=== PATIENT | female | born 1960 | race Caucasian/White ===

== ENCOUNTER → 2016-04-29 | Outpatient (CLI) | payer MEDICARE, BC ==
[2016-04-29 10:44] LABS: Basophils % (A) 1 %; CH 31.5; CHCM 34.9; Eosinophils # (A) 0.2 k/uL (0-0.7); Eosinophils % (A) 3 %; HCT 40.6 % (34.0-46.0); HDW 2.83; HGB 13.7 gm/dL (11.4-16.0); Luc # (Auto) 0.11; Luc % (Auto) 2; Lymphocytes % (A) 32 %; MCH 30.6 pg (25.0-35.0); MCHC 33.8 g/dL (31.0-37.0); MCV 90.6 fL (80.0-100.0); Mean Platelet Volume 6.5; Monocytes # (A) 0.3 k/uL (0-1.0); Monocytes % (A) 5 %; Neutrophils # (A) 3.5 k/uL (1.3-7.7); Neutrophils % (A) 58 %; RBC 4.48 m/uL (3.80-5.40); RDW 12.7 % (11.5-15.5); WBC 6.1 k/uL (3.8-10.6); WBC (Perox) 6.43
[2016-04-29 10:45] LABS: Appearance,Urine Clear (Clear); Bilirubin,Urine Negative (Negative); Glucose,Urine (UA) 4+ (Negative); Ketones,Urine Negative (Negative); Leukocyte Esterase,Urine Negative (Negative); Nitrite,Urine Negative (Negative); PH, Urine 5.5 (5.0-8.0); Protein,Urine Negative (Negative); Specific Gravity,Urine 1.024 (1.001-1.035); UA Billing (MACRO vs. MICRO) CHEM; Urobilinogen,Urine <2.0 mg/dL (<2.0)
[2016-04-29 11:27] LABS: ALT 25 U/L (9-52); AST 19 U/L (14-36); Alkaline Phosphatase 75 U/L (38-126); Anion Gap 12 mmol/L; Blood Urea Nitrogen 9 mg/dL (7-17); Calcium 9.6 mg/dL (8.4-10.2); Carbon Dioxide 27 mmol/L (22-30); Chloride 104 mmol/L (98-107); Cholesterol 157 mg/dL (<200); Creatine Kinase 54 U/L (30-135); Glucose 114 mg/dL (74-99); HDL Cholesterol 65 mg/dL (40-60); Non-African American GFR(MDRD) >60 (>60 ml/min/1.73 sqM); Potassium 4.4 mmol/L (3.5-5.1); Sodium 143 mmol/L (137-145); Total Bilirubin 0.7 mg/dL (0.2-1.3); Total Protein 6.7 g/dL (6.3-8.2); Triglycerides 159 mg/dL (<150)
[2016-04-29 12:07] LABS: Vitamin B12 673 pg/mL (239-931)
[2016-04-29 12:22] LABS: Erythrocyte Sedimentation Rate 7 mm/hr (0-20)
== END | disposition home or self-care (01) ==
LOC: LABWHC1 09:59
PROVIDERS: ATTEND Family Medicine
DX: Z00.00 Encounter for general adult medical examination without abnormal findings (principal); A08.4 Viral intestinal infection, unspecified; E78.00 Pure hypercholesterolemia, unspecified; E11.9 Type 2 diabetes mellitus without complications
CPT/HCPCS: 36415; 80053; 80061; 81003; 82043; 82306; 82550; 82607; 84443; 85025; 85652; 87086

== ENCOUNTER → 2016-12-23 | Outpatient (CLI) | payer MEDICARE, BC ==
--- NOTE | 2016-12-24 08:58 | MM ---
Reason for exam: screening (asymptomatic). Last mammogram was performed 4 years and 8 months ago. History: Patient is postmenopausal and is nulliparous. Physical Findings: A clinical breast exam by your physician is recommended on an annual basis and results should be correlated with mammographic findings. MG 3D Screening Mammo W/Cad Bilateral CC and MLO view(s) were taken. Prior study comparison: May 01, 2012, mammogram, performed at [facility]. February 04, 2011, mammogram, performed at [facility]. Finding #1: There is a 4 mm equal density (isodense) mass in the far lateral left breast. Finding #2: There are typically benign calcifications in both breasts. ASSESSMENT: Incomplete: need additional imaging evaluation, BI-RAD 0 RECOMMENDATION: Special view mammogram of the left breast. If lesion persists on supplemental views, image directed ultrasound is recommended. [facility] will attempt to contact patient to return for supplemental views and ultrasound if indicated.
== END | disposition home or self-care (01) ==
LOC: RADMAMWWP 13:17
PROVIDERS: ATTEND Family Medicine
DX: Z12.31 Encounter for screening mammogram for malignant neoplasm of breast (principal)
CPT/HCPCS: 77063; G0202

== ENCOUNTER → 2016-12-27 | Outpatient (CLI) | payer MEDICARE, BC ==
--- NOTE | 2016-12-30 07:25 | MM ---
Reason for exam: additional evaluation requested from abnormal screening. Last mammogram was performed less than 1 month ago. History: Patient is postmenopausal and is nulliparous. Excisional biopsy of the left breast, 2013. Took hormonal contraceptives for 11 years beginning at age 20. Physical Findings: Nurse did not find any significant physical abnormalities on exam. MG 3D Work Up W/Cad LT CC, MLO, XCCL, and spot compression CC view(s) were taken of the left breast. Prior study comparison: December 23, 2016, bilateral MG 3d screening mammo w/cad. May 01, 2012, mammogram, performed at [facility]. No persistent nodule. Tortuous vessels noted. These results were verbally communicated with the patient and result sheet given to the patient on 12/27/16. ASSESSMENT: Benign, BI-RAD 2 RECOMMENDATION: Return to routine screening mammogram schedule for both breasts.
== END | disposition home or self-care (01) ==
LOC: RADMAMWWP 15:01
PROVIDERS: ATTEND Family Medicine
DX: R92.8 Other abnormal and inconclusive findings on diagnostic imaging of breast (principal)
CPT/HCPCS: G0206; G0279

== ENCOUNTER → 2017-08-01 | Outpatient (CLI) | payer MEDICARE, BC ==
--- NOTE | 2017-08-01 13:40 | US ---
EXAMINATION TYPE: US abdomen complete DATE OF EXAM: 08/01/2017 COMPARISON: NONE CLINICAL HISTORY: R19.7 Diarrhea unspecified. N/V/D, and back pain for a few days, cholecystectomy EXAM MEASUREMENTS: Liver Length: 15.6 cm Gallbladder Wall: Surgically absent CBD: 0.7 cm Spleen: 13.5 cm Right Kidney: 12.4 x 5.9 x 5.5 cm Left Kidney: 11.1 x 5.6 x 5.4 cm *bowel gas and habitus limits exam Pancreas: limited views, wnl Liver: wnl Gallbladder: Surgically absent Evidence for sonographic Kitchen's sign: no CBD: wnl Spleen: wnl Right Kidney: wnl Left Kidney: wnl Upper IVC: wnl Abd Aorta: wnl The liver is homogenous. The intrahepatic portion of the IVC and proximal abdominal aorta are within normal limits.Common bile duct is unremarkable. The visualized portions of the pancreas are homogen ous. The spleen is unremarkable. Kidneys are symmetric and free of hydronephrosis. No renal lesion s are seen. IMPRESSION: 1. No significant abnormality appreciated.
--- NOTE | 2017-08-01 15:43 | US ---
EXAMINATION TYPE: US pelvic complete DATE OF EXAM: 08/01/2017 COMPARISON: NONE CLINICAL HISTORY: R19.7 Diarrhea unspecified. back pain, n/v/d, G0 TECHNIQUE: TA. Transabdominal sonographic images of the pelvis were acquired. Date of LMP: 5 years ago EXAM MEASUREMENTS: Uterus: 5.0 x 4.1 x 2.2 cm Endometrial Stripe: 0.3 cm Right Ovary: not seen Left Ovary: not seen *patient waited additional 20 mins to fill, but limitations due to patients active peristalsing bowel , gas and h/o diarrhea today 1. Uterus: Anteverted wnl 2. Endometrium: wnl 3. Right Ovary: not seen due to peristalsing bowel and or atrophy 4. Left Ovary: not seen due to peristalsing bowel and atrophy 5. Bilateral Adnexa: bowel 6. Posterior cul-de-sac: wnl IMPRESSION: 1. No significant abnormality seen. Poor visualization of the ovaries.
== END | disposition home or self-care (01) ==
LOC: RADUSWWP 12:57
PROVIDERS: ATTEND Family Medicine
DX: R19.7 Diarrhea, unspecified (principal); R11.2 Nausea with vomiting, unspecified
CPT/HCPCS: 76700; 76856

== ENCOUNTER 2019-05-05 00:27 | Emergency (ER) | payer MEDICARE, BC ==
[2019-05-05] MEDS ORDERED: ONDANSETRON 4 MG/2 ML VIAL IVP STA (01:14)
[2019-05-05] MEDS ORDERED: KETOROLAC 30 MG/ML 1 ML VIAL IVP STA (01:14)
[2019-05-05] MEDS ORDERED: SODIUM CHLORIDE 0.9% 500 ML 500 ML IV STA ×2 (01:14→03:23)
--- NOTE | 2019-05-05 01:20 | ED ---
Nausea/Vomiting/Diarrhea HPI - General Chief complaint: Nausea/Vomiting/Diarrhea Stated complaint: NVD Time Seen by Provider: 05/05/19 00:42 Source: patient Mode of arrival: ambulatory Limitations: no limitations - History of Present Illness Initial comments: Patient is a 58-year-old female presenting to emergency Department with complaints of acute onset left sided abdominal pain that radiates in the left lower quadrant. Patient is also having diarrhea as well as nausea and vomiting. Patient states it started abruptly approximately 4 hours prior to arrival. Patient states she was feeling fine the rest of the day been eating and drinking as normal until her symptoms began. Patient denies having a fever, chest pain, shortness of breath. Patient states she does have a history of mild pancreatitis. She denies history of kidney stones. She is also complaining of increase in frequency of urination. She denies any burning. She has been galaviz ving regular bowel movements. She has no other complaints at this time. Upon arrival to the ER her vitals are stable. - Related Data Previous Rx's Medication Instructions Recorded Ketorolac [Toradol] 10 mg PO Q8HR #10 tab 05/05/19 Ondansetron Odt [Zofran Odt] 4 mg PO Q8HR PRN #10 tab 05/05/19 Tamsulosin [Flomax] 0.4 mg PO DAILY #7 cap 05/05/19 Allergies Allergy/AdvReac Type Severity Reaction Status Date / Time acetaminophen [From Vicodin] AdvReac Nausea & Verified 05/05/19 00:41 Vomiting & Diarrhea codeine AdvReac Nausea & Verified 05/05/19 00:41 Vomiting & Diarrhea hydrocodone [From Vicodin] AdvReac Nausea & Verified 05/05/19 00:41 Vomiting & Diarrhea morphine AdvReac Nausea & Verified 05/05/19 00:41 Vomiting & Diarrhea Review of Systems ROS Statement: Those systems with pertinent positive or pertinent negative responses have been documented in the HPI. ROS Other: All systems not noted in ROS Statement are negative. Past Medical History Past Medical History: Diabetes Mellitus, Hyperlipidemia, Hypertension Additional Past Medical History / Comment(s): herniated disk L4L5, History of Any Multi-Drug Resistant Organisms: None Reported Past Surgical History: Cholecystectomy Additional Past Surgical History / Comment(s): cervical fusion C4-C5, C5-C6, Past Psychological History: Depression Smoking Status: Never smoker Past Alcohol Use History: None Reported Past Drug Use History: None Reported General Exam - General Exam Comments Initial Comments: GENERAL: Patient appears uncomfortable, actively vomiting during exam. HEAD: Atraumatic, normocephalic. EYES: Pupils equal round and reactive to light, extraocular movements intact, sclera anicteric, conjunctiva are normal. ENT: Nares patent, oropharynx clear without exudates. Moist mucous membranes. NECK: Normal range of motion, supple without lymphadenopathy or JVD. LUNGS: Breath sounds clear to auscultation bilaterally and equal. No wheezes rales or rhonchi. HEART: Regular rate and rhythm without murmurs, rubs or gallops. ABDOMEN: Mildly tender on the left side of the abdomen. No flank tenderness. Soft, normoactive bowel sounds. No guarding, no rebound. No masses appreciated. : Deferred EXTREMITIES: Normal range of motion, no pitting or edema. No clubbing or cyanosis. NEUROLOGICAL: Normal speech, normal gait. PSYCH: Normal mood, normal affect. SKIN: Warm, Dry, normal turgor, no rashes or lesions noted. Limitations: no limitations Course Vital Signs 05/05/19 00:35 Temperature 98.2 F Pulse Rate 65 Respiratory 18 Rate Blood Pressure 162/78 O2 Sat by Pulse 100 Oximetry Medical Decision Making - Medical Decision Making Patient is a 58-year-old female presenting with left-sided abdominal pain with radiation of the left lower quadrant as well as nausea, vomiting, diarrhea 4 hours. Labs reveal slight leukocytosis at 13.8, likely reactive. Glucose was 264. Lipase is normal. Urine shows 4+ glucose and 4+ ketones, large amount of blood. Patient does admit to being on the ketones diet. Patient was given fluids, Toradol, Zofran reports a huge improvement in her symptoms. CT of the abdomen shows a small obstructing calculus at the left ureterovesicular junction. Mild left-sided hydronephrosis. I discussed these findings with the patient. Patient is stable for discharge at this time. She'll be sent home with pain control, Flomax, Zofran. She is in agreement with this plan of care. She will follow-up with her PCP or urology. Return parameters were discussed with the patient she verbalized understanding. - Lab Data Result diagrams: 05/05/19 02:57 05/05/19 02:00 Lab Results 05/05/19 05/05/19 05/05/19 Range/Units 02:00 02:00 02:57 WBC 13.8 H (3.8-10.6) k/uL RBC 4.20 (3.80-5.40) m/uL Hgb 13.2 (11.4-16.0) gm/dL Hct 37.7 (34.0-46.0) % MCV 89.8 (80.0-100.0) fL MCH 31.4 (25.0-35.0) pg MCHC 35.0 (31.0-37.0) g/dL RDW 13.0 (11.5-15.5) % Plt Count 265 (150-450) k/uL Neutrophils % 86 % Lymphocytes % 8 % Monocytes % 4 % Eosinophils % 1 % Basophils % 0 % Neutrophils # 11.9 H (1.3-7.7) k/uL Lymphocytes # 1.1 (1.0-4.8) k/uL Monocytes # 0.6 (0-1.0) k/uL Eosinophils # 0.2 (0-0.7) k/uL Basophils # 0.0 (0-0.2) k/uL PT 10.0 (9.0-12.0) sec INR 1.0 (<1.2) APTT 21.9 L (22.0-30.0) sec Sodium 135 L (137-145) mmol/L Potassium 4.9 (3.5-5.1) mmol/L Chloride 100 (98-107) mmol/L Carbon Dioxide 18 L (22-30) mmol/L Anion Gap 17 mmol/L BUN 22 H (7-17) mg/dL Creatinine 0.81 (0.52-1.04) mg/dL Est GFR (CKD-EPI)AfAm >90 (>60 ml/min/1.73 sqM) Est GFR (CKD-EPI)NonAf 81 (>60 ml/min/1.73 sqM) Glucose 264 H (74-99) mg/dL Calcium 10.1 (8.4-10.2) mg/dL Total Bilirubin 0.9 (0.2-1.3) mg/dL AST 30 (14-36) U/L ALT 12 (4-34) U/L Alkaline Phosphatase 69 (38-126) U/L Total Protein 8.2 (6.3-8.2) g/dL Albumin 5.1 H (3.5-5.0) g/dL Amylase 107 (30-110) U/L Lipase 220 (23-300) U/L Urine Color Urine Appearance (Clear) Urine pH (5.0-8.0) Ur Specific [place] (1.001-1.035) Urine Protein (Negative) Urine Glucose (UA) (Negative) Urine Ketones (Negative) Urine Blood (Negative) Urine Nitrite (Negative) Urine Bilirubin (Negative) Urine Urobilinogen (<2.0) mg/dL Ur Leukocyte Esterase (Negative) Urine RBC (0-5) /hpf Urine WBC (0-5) /hpf Ur Squamous Epith Cells (0-4) /hpf Hyaline Casts (0-2) /lpf Urine Mucus (None) /hpf 05/05/19 Range/Units 03:02 WBC (3.8-10.6) k/uL RBC (3.80-5.40) m/uL Hgb (11.4-16.0) gm/dL Hct (34.0-46.0) % MCV (80.0-100.0) fL MCH (25.0-35.0) pg MCHC (31.0-37.0) g/dL RDW (11.5-15.5) % Plt Count (150-450) k/uL Neutrophils % % Lymphocytes % % Monocytes % % Eosinophils % % Basophils % % Neutrophils # (1.3-7.7) k/uL Lymphocytes # (1.0-4.8) k/uL Monocytes # (0-1.0) k/uL Eosinophils # (0-0.7) k/uL Basophils # (0-0.2) k/uL PT (9.0-12.0) sec INR (<1.2) APTT (22.0-30.0) sec Sodium (137-145) mmol/L Potassium (3.5-5.1) mmol/L Chloride (98-107) mmol/L Carbon Dioxide (22-30) mmol/L Anion Gap mmol/L BUN (7-17) mg/dL Creatinine (0.52-1.04) mg/dL Est GFR (CKD-EPI)AfAm (>60 ml/min/1.73 sqM) Est GFR (CKD-EPI)NonAf (>60 ml/min/1.73 sqM) Glucose (74-99) mg/dL Calcium (8.4-10.2) mg/dL Total Bilirubin (0.2-1.3) mg/dL AST (14-36) U/L ALT (4-34) U/L Alkaline Phosphatase (38-126) U/L Total Protein (6.3-8.2) g/dL Albumin (3.5-5.0) g/dL Amylase (30-110) U/L Lipase (23-300) U/L Urine Color Light Yellow Urine Appearance Clear (Clear) Urine pH 5.5 (5.0-8.0) Ur Specific [place] 1.038 H (1.001-1.035) Urine Protein Trace H (Negative) Urine Glucose (UA) 4+ H (Negative) Urine Ketones 4+ H (Negative) Urine Blood Large H (Negative) Urine Nitrite Negative (Negative) Urine Bilirubin Negative (Negative) Urine Urobilinogen <2.0 (<2.0) mg/dL Ur Leukocyte Esterase Negative (Negative) Urine RBC >182 H (0-5) /hpf Urine WBC 6 H (0-5) /hpf Ur Squamous Epith Cells <1 (0-4) /hpf Hyaline Casts 1 (0-2) /lpf Urine Mucus Rare H (None) /hpf Disposition Clinical Impression: Calculus of left ureter, Left sided abdominal pain, Nausea and vomiting Disposition: HOME SELF-CARE Condition: Stable Instructions (If sedation given, give patient instructions): Kidney Stones (ED) Additional Instructions: Please return to the Emergency Department if symptoms worsen or any other concerns. Follow-up with PCP. Take medications as prescribed. Prescriptions: Tamsulosin [Flomax] 0.4 mg PO DAILY #7 cap Ketorolac [Toradol] 10 mg PO Q8HR #10 tab Ondansetron Odt [Zofran Odt] 4 mg PO Q8HR PRN #10 tab PRN Reason: Nausea Is patient prescribed a controlled substance at d/c from ED?: No Referrals: Calixto Meyer MD [Primary Care Provider] - 1-2 days Kem Velasco MD [STAFF PHYSICIAN] - 1-2 days
[2019-05-05 02:26] LABS: African American GFR (CKD) >90 (>60 ml/min/1.73 sqM); Albumin 5.1 g/dL (3.5-5.0); Amylase 107 U/L (30-110); Anion Gap 17 mmol/L; Calcium 10.1 mg/dL (8.4-10.2); Carbon Dioxide 18 mmol/L (22-30); Chloride 100 mmol/L (98-107); Glucose 264 mg/dL (74-99); Non-African American GFR(CKD) 81 (>60 ml/min/1.73 sqM); Sodium 135 mmol/L (137-145); Total Bilirubin 0.9 mg/dL (0.2-1.3); Total Protein 8.2 g/dL (6.3-8.2)
[2019-05-05 02:29] LABS: Blood Urea Nitrogen 22 mg/dL (7-17); Potassium 4.9 mmol/L (3.5-5.1)
[2019-05-05 02:30] LABS: ALT 12 U/L (4-34); AST 30 U/L (14-36); Alkaline Phosphatase 69 U/L (38-126)
[2019-05-05 02:36] LABS: Partial Thromboplastin Time 21.9 sec (22.0-30.0)
[2019-05-05 03:05] LABS: Basophils % (A) 0 %; Eosinophils # (A) 0.2 k/uL (0-0.7); Eosinophils % (A) 1 %; HCT 37.7 % (34.0-46.0); HGB 13.2 gm/dL (11.4-16.0); Lymphocytes # (A) 1.1 k/uL (1.0-4.8); Lymphocytes % (A) 8 %; MCH 31.4 pg (25.0-35.0); MCV 89.8 fL (80.0-100.0); Mean Platelet Volume 7.1; Monocytes # (A) 0.6 k/uL (0-1.0); Monocytes % (A) 4 %; Neutrophils # (A) 11.9 k/uL (1.3-7.7); Neutrophils % (A) 86 %; Platelet Count 265 k/uL (150-450); WBC 13.8 k/uL (3.8-10.6)
--- NOTE | 2019-05-05 03:11 | CT ---
EXAMINATION TYPE: CT abdomen pelvis w con DATE OF EXAM: 05/05/2019 COMPARISON: None HISTORY: Patient presents with LUQ pain. CT DLP: 1549 mGycm Automated exposure control for dose reduction was used. CONTRAST: Performed with IV Contrast, patient injected with 100mL mL of Isovue 300. Multiple axial sections were obtained from the diaphragm to the floor the pelvis with intravenous con trast Lung bases are clear of infiltrate. There is no pleural effusion. Heart size is normal. There is no p ericardial effusion. Liver spleen stomach pancreas appear normal. Bile ducts are not dilated. There are clips from cholecy stectomy. There is no adrenal mass. Kidneys have normal size and contour. There is mild left-sided hydronephros is. There is mild left side perinephric edema and FAT stranding. There is 3 mm calculus at the left u reterovesical junction. Bladder distends smoothly. There is no retroperitoneal adenopathy. Abdominal aorta is atheromatous. The appendix appears normal. No other urinary tract calculus is seen. Uterus is anteverted. There is no free fluid in the pelvis. There is no pelvic mass. There is no mese nteric edema. There is no ascites or free air. There are numerous sigmoid diverticula. I see no sign of diverticulitis. Lumbar spine is intact. There is vacuum disc at L4-5 and L5-S1. I see no focal bon e destruction. Bony pelvis is intact. IMPRESSION: Small obstructing calculus at the left ureterovesical junction. Mild left-sided hydronephrosis and hy droureter. Normal appendix. Colonic diverticulosis without diverticulitis.
[2019-05-05 03:19] LABS: Appearance,Urine Clear (Clear); Bilirubin,Urine Negative (Negative); Blood,Urine Large (Negative); Color,Urine Light Yellow; Glucose,Urine (UA) 4+ (Negative); Hyaline Casts,Urine 1 /lpf (0-2); Leukocyte Esterase,Urine Negative (Negative); Mucus,Urine Rare /hpf; Nitrite,Urine Negative (Negative); PH, Urine 5.5 (5.0-8.0); Protein,Urine Trace (Negative); RBC,Urine >182 /hpf (0-5); Specific Gravity,Urine 1.038 (1.001-1.035); Squamous Epithelial Cell,Urine <1 /hpf (0-4); Urobilinogen,Urine <2.0 mg/dL (<2.0); WBC,Urine 6 /hpf (0-5)
[2019-05-05 03:22] LABS: Ketones,Urine 4+ (Negative)
[2019-05-05] MEDS ORDERED: ONDANSETRON 4 MG ODT STARTER PACK 2 TAB BTL PO STA (03:33)
[2019-05-05 04:23] VITALS: BP 148/83; PULSE 98; RESP 16; TEMP 98.3
== END 2019-05-05 04:10 | disposition home or self-care (01) ==
LOC: EC 00:27
DX: N13.2 Hydronephrosis with renal and ureteral calculous obstruction (principal); E11.9 Type 2 diabetes mellitus without complications; I10 Essential (primary) hypertension; Z88.5 Allergy status to narcotic agent; Z88.6 Allergy status to analgesic agent; Z98.1 Arthrodesis status; Z90.49 Acquired absence of other specified parts of digestive tract
CPT/HCPCS: 36415; 80053; 82150; 83690; 85025; 85610; 85730; 81001; 74177; 99284; 96374; 96375; 96361 ×2; J2405; J1885; S0119; Q9967

== ENCOUNTER 2019-05-06 16:12 | Emergency (ER) | payer MEDICARE, BC ==
[2019-05-06] MEDS ORDERED: SODIUM CHLORIDE 0.9% 1,000 ML IV STA (16:36)
--- NOTE | 2019-05-06 16:39 | ED ---
Arrhythmia/Palpitations HPI - General Chief Complaint: Arrhythmia/Palpitations Stated Complaint: Chest pain Time Seen by Provider: 05/06/19 16:21 Source: patient Mode of arrival: ambulatory Limitations: no limitations - History of Present Illness Initial Comments: Dictation was produced using [id number] dictation software. please excuse any grammatical, word or spelling errors. Chief Complaint: 58-year-old feel presents with palpitations. History of Present Illness: 58-year-old female she denies any history of cardiac disease she presents today with palpitations since 130 PM. Patient thought that this was secondary to her anxiety. She waited to see if her palpitations would go away. Patient denies any history of dysrhythmia. Patient was currently undergoing treatment for kidney stones. She's been taking Flomax, Toradol and Z ofran. She was at her doctor's office morning however did not have palpitations at that time. She denies any pain complaints. The ROS documented in this emergency department record has been reviewed and confirmed by me. Those systems with pertinent positive or negative responses have been documented in the HPI. All other systems are other negative and/or noncontributory. PHYSICAL EXAM: General Impression: Alert and oriented x3, not in acute distress HEENT: Normocephalic atraumatic, extra-ocular movements intact, pupils equal and reactive to light bilaterally, mucous membranes moist. Cardiovascular: Tachycardic Chest: Lungs clear to auscultation bilaterally, no rhonchi, no wheeze, no rales Abdomen: Bowel sounds present, abdomen soft, non-tender, non-distended, no organomegaly Musculoskeletal: Pulses present and equal in all extremities, no peripheral edema Motor: no focal deficits noted Neurological: CN II-XII grossly intact, no focal motor or sensory deficits noted Skin: Intact with no visualized rashes Psych: Normal affect and mood ED course: 58 Year old female presents with palpitations. As upon arrival shows heart rate of 158, rest of vital signs within acceptable limits. Patient placed on monitor. Monitor showed supraventricular tachycardia. Valsalva maneuvers w ere attempted with success. Patient currently in sinus tachycardia with heart rate 102. There is evidence of left bundle branch block. No old EKG for comparison.She was monitored in the emergency department for several hours. Patient had no repeat incidences of tachydysrhythmia. Laboratory evaluation obtained. CBC unremarkable. Metabolic panel shows magnesium 1.1. There is mild anion gap acidosis. This is likely secondary to prolonged episode of tachydysrhythmia. Patient given IV and by mouth magnesium. Patient given option to be admitted to the hospital however she went discharge. Patient given referral to cardiology. Dr. Valdes was discussed. Patient will be discharged. EKG interpretation: Ventricular rate one of 2, sinus tachycardia,. 166, QS 1:30, QTC 477. No MS prolongation, no QTC prolongation, no ST or T-wave changes noted. . Overall, this EKG is unremarkable - Related Data Previous Rx's Medication Instructions Recorded Ketorolac [Toradol] 10 mg PO Q8HR #10 tab 05/05/19 Ondansetron Odt [Zofran Odt] 4 mg PO Q8HR PRN #10 tab 05/05/19 Tamsulosin [Flomax] 0.4 mg PO DAILY #7 cap 05/05/19 Allergies Allergy/AdvReac Type Severity Reaction Status Date / Time acetaminophen [From Vicodin] AdvReac Nausea & Verified 05/06/19 16:16 Vomiting & Diarrhea codeine AdvReac Nausea & Verified 05/06/19 16:16 Vomiting & Diarrhea hydrocodone [From Vicodin] AdvReac Nausea & Verified 05/06/19 16:16 Vomiting & Diarrhea morphine AdvReac Nausea & Verified 05/06/19 16:16 Vomiting & Diarrhea Review of Systems ROS Statement: Those systems with pertinent positive or pertinent negative responses have been documented in the HPI. ROS Other: All systems not noted in ROS Statement are negative. Past Medical History Past Medical History: Diabetes Mellitus, Hyperlipidemia, Hypertension Additional Past Medical History / Comment(s): herniated disk L4L5, History of Any Multi-Drug Resistant Organisms: None Reported Past Surgical History: Cholecystectomy Additional Past Surgical History / Comment(s): cervical fusion C4-C5, C5-C6, Past Psychological History: Anxiety, Depression Smoking Status: Never smoker Past Alcohol Use History: None Reported Past Drug Use History: None Reported General Exam Limitations: no limitations Course Vital Signs 05/06/19 05/06/19 05/06/19 16:16 16:35 16:50 Temperature 98.3 F Pulse Rate 158 H 87 Pulse Rate [ 85 Bank Appraiser ] Respiratory 20 16 Rate Blood Pressure 146/80 155/91 O2 Sat by Pulse 96 99 Oximetry 05/06/19 05/06/19 05/06/19 17:00 17:18 18:00 Temperature Pulse Rate 85 80 75 Pulse Rate [ Bank Appraiser ] Respiratory 16 16 Rate Blood Pressure 155/91 129/75 O2 Sat by Pulse 99 99 Oximetry 05/06/19 05/06/19 18:18 20:09 Temperature 98.5 F Pulse Rate 84 73 Pulse Rate [ Bank Appraiser ] Respiratory 18 Rate Blood Pressure 129/58 O2 Sat by Pulse 97 Oximetry Medical Decision Making - Lab Data Result diagrams: 05/06/19 16:44 05/06/19 16:44 Lab Results 05/06/19 05/06/19 Range/Units 16:44 16:44 WBC 9.5 (3.8-10.6) k/uL RBC 4.60 (3.80-5.40) m/uL Hgb 14.3 (11.4-16.0) gm/dL Hct 41.5 (34.0-46.0) % MCV 90.1 (80.0-100.0) fL MCH 31.0 (25.0-35.0) pg MCHC 34.4 (31.0-37.0) g/dL RDW 13.1 (11.5-15.5) % Plt Count 285 (150-450) k/uL Neutrophils % 67 % Lymphocytes % 24 % Monocytes % 6 % Eosinophils % 2 % Basophils % 0 % Neutrophils # 6.4 (1.3-7.7) k/uL Lymphocytes # 2.3 (1.0-4.8) k/uL Monocytes # 0.6 (0-1.0) k/uL Eosinophils # 0.1 (0-0.7) k/uL Basophils # 0.0 (0-0.2) k/uL Sodium 138 (137-145) mmol/L Potassium 3.9 (3.5-5.1) mmol/L Chloride 105 (98-107) mmol/L Carbon Dioxide 19 L (22-30) mmol/L Anion Gap 14 mmol/L BUN 16 (7-17) mg/dL Creatinine 0.57 (0.52-1.04) mg/dL Est GFR (CKD-EPI)AfAm >90 (>60 ml/min/1.73 sqM) Est GFR (CKD-EPI)NonAf >90 (>60 ml/min/1.73 sqM) Glucose 133 H (74-99) mg/dL Calcium 9.6 (8.4-10.2) mg/dL Magnesium 1.1 L (1.6-2.3) mg/dL Disposition Clinical Impression: SVT (supraventricular tachycardia) Disposition: HOME SELF-CARE Condition: Good Instructions (If sedation given, give patient instructions): Heart Palpitations (ED) Additional Instructions: These follow-up with her primary care doctor for outpatient management of SVT and to also have your magnesium levels rechecked. Please add higher magnesium- containing foods to her daily diet. Is patient prescribed a controlled substance at d/c from ED?: No Referrals: Cam Moy MD [STAFF PHYSICIAN] - 1-2 days Time of Disposition: 20:41
--- NOTE | 2019-05-06 17:28 | XR ---
EXAMINATION: XR chest 1V portable DATE AND TIME: 05/06/2019 5:09 PM CLINICAL INDICATION: PHH; dysrhythmia TECHNIQUE: AP upright portable COMPARISON: Lung base images from the CT 05/05/2019 FINDINGS: The lungs are clear. The pleural spaces are negative. The cardiac silhouette is not enlarged. The remainder of the mediastinal silhouette is unremarkable. The skeletal structures and soft tissues are negative for acute findings. IMPRESSION: 1. NO ACUTE RADIOGRAPHIC PROCESS 2. NO CARDIOMEGALY; CT comparison shows coronary calcifications, aortic valve plane calcifications, and mild left atrial enlargement.
[2019-05-06 17:29] LABS: Basophils % (A) 0 %; Eosinophils # (A) 0.1 k/uL (0-0.7); Eosinophils % (A) 2 %; HCT 41.5 % (34.0-46.0); HGB 14.3 gm/dL (11.4-16.0); Lymphocytes # (A) 2.3 k/uL (1.0-4.8); Lymphocytes % (A) 24 %; MCHC 34.4 g/dL (31.0-37.0); MCV 90.1 fL (80.0-100.0); Mean Platelet Volume 7.5; Monocytes # (A) 0.6 k/uL (0-1.0); Monocytes % (A) 6 %; Neutrophils # (A) 6.4 k/uL (1.3-7.7); Neutrophils % (A) 67 %; Platelet Count 285 k/uL (150-450); RDW 13.1 % (11.5-15.5); WBC 9.5 k/uL (3.8-10.6)
[2019-05-06 17:31] LABS: African American GFR (CKD) >90 (>60 ml/min/1.73 sqM); Anion Gap 14 mmol/L; Blood Urea Nitrogen 16 mg/dL (7-17); Calcium 9.6 mg/dL (8.4-10.2); Carbon Dioxide 19 mmol/L (22-30); Chloride 105 mmol/L (98-107); Glucose 133 mg/dL (74-99); Magnesium 1.1 mg/dL (1.6-2.3); Non-African American GFR(CKD) >90 (>60 ml/min/1.73 sqM); Potassium 3.9 mmol/L (3.5-5.1); Sodium 138 mmol/L (137-145)
[2019-05-06] MEDS ORDERED: MAGNESIUM OXIDE 400 MG TAB PO STA (18:41)
[2019-05-06] MEDS: MAGNESIUM SULFATE-D5W PMX 1 GM in DEXTROSE/WATER 1 100ML.BAG IVPB SCH ×2 (18:44→19:41)
[2019-05-06 21:56] VITALS: BP 144/75; PULSE 74; RESP 16; TEMP 97.5
== END 2019-05-06 21:55 | disposition home or self-care (01) ==
LOC: EC 16:12
DX: I47.1 Supraventricular tachycardia (principal); I44.7 Left bundle-branch block, unspecified; E87.2 Acidosis; N20.0 Calculus of kidney; Z88.5 Allergy status to narcotic agent; Z88.6 Allergy status to analgesic agent
CPT/HCPCS: 99285; 96365; 96366; 96361; 36415; 93005; 80048; 83735; 85025; 71045; J3475

== ENCOUNTER 2022-03-14 06:17 | Day surgery (SDC) | payer MEDICARE ==
[2022-03-12 10:51] VITALS: BMI 35.0
--- NOTE | 2022-03-14 06:00 | P.GSHP ---
History of Present Illness H&P Date: 03/14/22 CHIEF COMPLAINT: Colon screen HISTORY OF PRESENT ILLNESS: The patient is a 61-year-old female who presents for colon screen. Lower endoscopy was offered for further evaluation and management. PAST MEDICAL HISTORY: Please see list. PAST SURGICAL HISTORY: Please see list. MEDICATIONS: Please see list. ALLERGIES: Please see list. SOCIAL HISTORY: No illicit drug use FAMILY HISTORY: No reports of Crohn disease or ulcerative colitis. REVIEW OF ORGAN SYSTEMS: CONSTITUTIONAL: No reports of fevers or chills. PHYSICAL EXAM: VITAL SIGNS: Stable GENERAL: Well-developed pleasant in no acute distress. HEENT: No scleral icterus. Extraocular movements grossly intact. Moist buccal mucosa. NECK: Supple without lymphadenopathy. CHEST: Unlabored respirations. Equal bilateral excursions. CARDIOVASCULAR: Regular rate and rhythm. Distal 2+ pulses. ABDOMEN: Soft, nontender, nondistended. MUSCULOSKELETAL: No clubbing, cyanosis, or edema. ASSESSMENT: 1. Colon screen. PLAN: 1. Recommend proceeding with a lower endoscopy Past Medical History Past Medical History: Diabetes Mellitus, Hearing Disorder / Deafness, Hyperlipidemia, Hypertension, Skin Disorder Additional Past Medical History / Comment(s): Herniated discs - L4-L5. Hx kidney stone. Hx tachycardia. Varicose veins. Oral Lichens Planus, "bad dandruff". Tinnitus. History of Any Multi-Drug Resistant Organisms: None Reported Past Surgical History: Cholecystectomy, Orthopedic Surgery Additional Past Surgical History / Comment(s): Cervical fusion C4-C5, C5-C6, bilateral carpal tunnel surgery. Past Anesthesia/Blood Transfusion Reactions: Motion Sickness, Postoperative Nausea & Vomiting (PONV) Additional Past Anesthesia/Blood Transfusion Reaction / Comment(s): Difficult Lab Draw/IV start. Past Psychological History: Anxiety, Depression Smoking Status: Never smoker Past Alcohol Use History: Rare Past Drug Use History: None Reported - Past Family History Mother Family Medical History: Myocardial Infarction ([place]) Additional Family Medical History / Comment(s): . Medications and Allergies Home Medications Medication Instructions Recorded Confirmed Type Acetaminophen Tab [Tylenol Tab] 500 - 1,000 mg PO Q4-6H PRN 03/12/22 03/12/22 History Aspirin [Adult Low Dose Aspirin EC] 81 mg PO DAILY 03/12/22 03/12/22 History Atorvastatin [Lipitor] 10 mg PO HS 03/12/22 03/12/22 History Cholecalciferol (Vitamin D3) 125 mcg PO DAILY 03/12/22 03/12/22 History [Vitamin D3 (125 MCG = 5,000 IU)] Citalopram Hydrobromide 60 mg PO QAM 03/12/22 03/12/22 History [Citalopram HBr] Magnesium 400 mg PO HS 03/12/22 03/12/22 History Metoprolol Succinate [Metoprolol 25 mg PO QAM 03/12/22 03/12/22 History Succinate ER] metFORMIN HCL 1,000 mg PO BID 03/12/22 03/12/22 History Allergies Allergy/AdvReac Type Severity Reaction Status Date / Time acetaminophen [From Vicodin] AdvReac Nausea & Verified 03/12/22 10:28 Vomiting & Diarrhea codeine AdvReac Nausea & Verified 03/12/22 10:28 Vomiting & Diarrhea hydrocodone [From Vicodin] AdvReac Nausea & Verified 03/12/22 10:28 Vomiting & Diarrhea morphine AdvReac Nausea & Verified 03/12/22 10:28 Vomiting & Diarrhea
[~2022-03-14 06:17] MED LIST: LACTATED RINGERS 1,000 ML IV SCH
[2022-03-14] MEDS ORDERED: ONDANSETRON 4 MG/2 ML VIAL ONE (07:20)
[2022-03-14 07:28] VITALS: TEMP 97.8
[2022-03-14 07:28] LABS: Glucose,Whole Blood 193 mg/dL (70-110)
[2022-03-14] MEDS ORDERED: LIDOCAINE 2% INJ 20 MG/ML (2 ML VIAL) ONE (07:29)
[2022-03-14] MEDS ORDERED: PROPOFOL 10 MG/ML 20 ML VIAL IV ONE (07:29)
[2022-03-14] MEDS ORDERED: ONDANSETRON 4 MG/2 ML VIAL IVP ONE (07:29)
--- NOTE | 2022-03-14 07:58 | P.PCN ---
Date of Procedure: 03/14/22 Description of Procedure: PREOPERATIVE DIAGNOSIS: Personal colon history polyps Colonoscopy screening. POSTOPERATIVE DIAGNOSIS: Colonoscopy screening. Diverticulosis, scattered. OPERATION: Colonoscopy to the cecum, ileocecal valve and appendiceal orifice. SURGEON: Tonya Arzate MD. ANESTHESIA: MAC. INDICATIONS: The patient is a 61-year-old female who presents for colonoscopy screening. Benefits and risks were described and informed consent was obtained. DESCRIPTION OF PROCEDURE: The patient had undergone Golytely prep. The patient had been brought into the operating room and laid in the left lateral decubitus position. After adequate intravenous sedation, the rectum was examined with 2% lidocaine jelly. External hemorrhoids were encountered. The rectal tone was within normal limits. No lesions were palpated in the rectal vault. An Olympus colonoscope was advanced until the cecum, ileocecal valve and appendiceal orifice were clearly viewed. The prep was fair. Scattered diverticulosis was encountered. No colonic polyps were found. No evidence of focal colitis was found. Retroflexion of the scope demonstrated grade 2 internal hemorrhoids without active bleeding or inflammation. The colon was desufflated. The patient had tolerated the procedure well. Withdrawal time was over 6 minutes. FINDINGS: Aronchick preparation quality scale 2+ (1-5) Internal hemorrhoids, grade 2 External prolapsed hemorrhoids, grade 2 No arteriovenous malformations. No adenomatous polyps. No focal colitis. Moderate to severe sigmoid diverticulosis RECOMMENDATIONS: Lower endoscopy in 5 years, 2026 Plan - Discharge Summary Discharge Rx Participant: No New Discharge Prescriptions: Continue metFORMIN HCL 1,000 mg PO BID Citalopram Hydrobromide [Citalopram HBr] 60 mg PO QAM Aspirin [Adult Low Dose Aspirin EC] 81 mg PO DAILY Cholecalciferol (Vitamin D3) [Vitamin D3 (125 MCG = 5,000 IU)] 125 mcg PO DAILY Atorvastatin [Lipitor] 10 mg PO HS Acetaminophen Tab [Tylenol] 500 - 1,000 mg PO Q4-6H PRN PRN Reason: Pain Magnesium 400 mg PO HS Metoprolol Succinate [Metoprolol Succinate ER] 25 mg PO QAM Discharge Medication List Acetaminophen Tab [Tylenol] 500 - 1,000 mg PO Q4-6H PRN 03/12/22 [History] Aspirin [Adult Low Dose Aspirin EC] 81 mg PO DAILY 03/12/22 [History] Atorvastatin [Lipitor] 10 mg PO HS 03/12/22 [History] Cholecalciferol (Vitamin D3) [Vitamin D3 (125 MCG = 5,000 IU)] 125 mcg PO DAILY 03/12/22 [History] Citalopram Hydrobromide [Citalopram HBr] 60 mg PO QAM 03/12/22 [History] Magnesium 400 mg PO HS 03/12/22 [History] Metoprolol Succinate [Metoprolol Succinate ER] 25 mg PO QAM 03/12/22 [History] metFORMIN HCL 1,000 mg PO BID 03/12/22 [History] Follow up Appointment(s)/Referral(s): Tonya Arzate MD [STAFF PHYSICIAN] - As Needed Patient Instructions/Handouts: Diverticulosis Diet (GEN), Diverticulosis (DC) Activity/Diet/Wound Care/Special Instructions: Repeat colonoscopy 5 years, 2026 Discharge Disposition: HOME SELF-CARE
[2022-03-14 08:00] VITALS: RESP 18
[2022-03-14 08:14] VITALS: BP 123/76; PULSE 63
== END 2022-03-14 08:38 | disposition home or self-care (01) ==
LOC: ORWHC2ENDO 06:17
PROVIDERS: ATTEND Surgery Plastic and Reconstructive Surgery
DX: Z12.11 Encounter for screening for malignant neoplasm of colon (principal); K57.30 Diverticulosis of large intestine without perforation or abscess without bleeding; E11.9 Type 2 diabetes mellitus without complications; E78.5 Hyperlipidemia, unspecified; F32.A Depression, unspecified; I10 Essential (primary) hypertension; Z90.49 Acquired absence of other specified parts of digestive tract; Z88.5 Allergy status to narcotic agent; Z82.49 Family history of ischemic heart disease and other diseases of the circulatory system; Z87.442 Personal history of urinary calculi; Z79.82 Long term (current) use of aspirin; Z79.84 Long term (current) use of oral hypoglycemic drugs
CPT/HCPCS: J2405; J2704; J2001; G0121

== ENCOUNTER → 2022-09-11 | Outpatient (CLI) | payer MEDICARE ==
--- NOTE | 2022-09-12 20:29 | MM ---
Reason for Exam: Screening (asymptomatic). Last mammogram was performed 5 year(s) and 8 month(s) ago. Patient History: Menarche at age 15. Patient has no children. Postmenopausal. Hormonal Contraceptives for 11 years from age 20 until age 31. 2013, Excisional Biopsy on the Left side. Risk Values: Oralia 5 year model risk: 1.8%. NCI Lifetime model risk: 8.5%. Prior Study Comparison: 05/01/2012 Screening Mammogram, [place]. 12/23/2016 Bilateral Screening Mammogram, [facility]. 12/27/2016 Left Diagnostic Mammogram, [facility]. Tissue Density: There are scattered fibroglandular densities. Findings: Analyzed By CAD. Benign oil cyst calcifications on the right. There is no suspicious group of microcalcifications or new suspicious mass in either breast. Overall Assessment: Negative, BI-RAD 1 Management: Screening Mammogram of both breasts in 1 year. . Patient should continue monthly self-breast exams. A clinical breast exam by your physician is recommended on an annual basis. This exam should not preclude additional follow-up of suspicious palpable abnormalities. Note on Oralia scores and lifetime risk: 1. A Oralia score greater than 3% is considered moderate risk. If this is the case, consider specialist referral to assess eligibility for a risk reducing agent. 2. If overall lifetime risk for the development of breast cancer is 20% or higher, the patient may qualify for future screening with alternating mammogram and breast MRI. Electronically signed and approved by: Josef Stein M.D. Radiologist
== END | disposition home or self-care (01) ==
LOC: RADMAMWWP 09:04
PROVIDERS: ATTEND Family Medicine
DX: Z12.31 Encounter for screening mammogram for malignant neoplasm of breast (principal); Z78.0 Asymptomatic menopausal state
CPT/HCPCS: 77063; 77067